=== PATIENT | female | born 1965 | race African-American/Black ===

== ENCOUNTER 2020-11-28 11:27 | Inpatient (IN) | payer MEDICARE, MEDICAID ==
[~2020-11-28] VITALS: Ht 165.1 cm; Wt 74.8 kg
[2020-11-28] MEDS ORDERED: SODIUM CHLORIDE 0.9% 1,000 ML IV ONE (12:30)
[2020-11-28] MEDS ORDERED: MORPHINE SULFATE 4 MG/ML CPJ (NOT FOR IM USE) IV ONE (12:30)
[2020-11-28 12:53] LABS: MEAN CORPUSCULAR HEMOGLOBIN 38.4 pg (28.0-32.0); MEAN CORPUSCULAR VOLUME 113.7 fL (81.0-99.0); MEAN PLATELET VOLUME 8.4 fl (7.4-10.4); PLATELET 207 x1000/uL (130-400); RED BLOOD CELL COUNT 1.66 mill/uL (4.2-5.4); RED CELL DISTRIBUTION WIDTH 24.1 % (11.6-14.6)
[2020-11-28 13:00] LABS: CHLORIDE 113 mEq/L (98-107)
[2020-11-28 13:03] LABS: INR 1.1; PROTHROMBIN TIME 11.4 sec (9.6-11.0)
[2020-11-28 13:05] LABS: HEMATOCRIT. 18.9 % (36.0-48.0); HEMOGLOBIN. 6.4 g/dL (12.0-16.0)
[2020-11-28 13:26] LABS: NUCLEATED RED BLOOD CELLS 161 /100 WBC
[2020-11-28 13:31] LABS: PLATELET ESTIMATE NORMAL
[2020-11-28 17:03] LABS: BG BASE EXCESS -4.1 mmol/L (-2.0-2.0); BG CARBOXYHEMOGLOBIN 1.1 % (0.5-1.5); BG DEOXYHEMOGLOBIN 3.2 % (0.0-5.0); BG HCO3 ACT 19.8 mmol/L (22.0-26.0); BG METHEMOGLOBIN 0.4 % (0.0-1.5); BG OXYGEN SATURATION 96.8 % (92.0-98.5); BG OXYHEMOGLOBIN 95.3 % (94.0-97.0); BG PCO2 30.1 mmHg (35.0-45.0); BG PH 7.435 (7.350-7.450); BG PO2 96.8 mmHg (75.0-100.0); BG SAMPLE SITE RIGHT RADIAL; BG TOTAL HEMOGLOBIN 6.4 g/dL (12.0-18.0); BG VENT MODE NASAL CANNULA
[2020-11-28] MEDS ORDERED: CEFTRIAXONE 1 G PREMIX 50 ML IV SCH (17:30)
[2020-11-28] MEDS: FOLIC ACID 1MG TABLET PO SCH (17:53)
[2020-11-28 21:21] LABS: CLARITY URINE CLEAR (CLEAR); COLOR URINE YELLOW (YELLOW); KETONES URINE NEGATIVE (NEGATIVE); LEUKOCYTE ESTERASE URINE NEGATIVE (NEGATIVE); NITRITE URINE NEGATIVE (NEGATIVE); OCCULT BLOOD URINE 2+ (NEGATIVE); PROTEIN URINE 3+ (NEGATIVE); SPECIFIC GRAVITY URINE 1.013 (1.005-1.030); UROBILINOGEN URINE 0.2 E.U./dL (0.2-1.0)
[2020-11-28 23:53] VITALS: BP 188/71
[2020-11-29] VITALS: BP 164/75
[2020-11-29] MEDS ORDERED: CLONIDINE 0.1MG TABLET PO PRN (00:15)
[2020-11-29 00:54] LABS: HEMATOCRIT. 24.3 % (36.0-48.0); HEMOGLOBIN. 8.5 g/dL (12.0-16.0); MEAN CORPUSCULAR HEMOGLOBIN 36.2 pg (28.0-32.0); MEAN CORPUSCULAR VOLUME 103.7 fL (81.0-99.0); MEAN PLATELET VOLUME 8.6 fl (7.4-10.4); PLATELET 205 x1000/uL (130-400); RED BLOOD CELL COUNT 2.34 mill/uL (4.2-5.4); RED CELL DISTRIBUTION WIDTH 23.9 % (11.6-14.6)
[2020-11-29] MEDS: MORPHINE SULFATE 2 MG/ML CPJ (NOT FOR IM USE) IV PRN ×3 (01:07→12:01)
[2020-11-29] MEDS: SODIUM CHLORIDE 0.45% 1,000 ML IV SCH ×3 (01:08→20:21)
[2020-11-29 01:17] LABS: PLATELET ESTIMATE NORMAL
[2020-11-29 01:20] LABS: NUCLEATED RED BLOOD CELLS 102 /100 WBC
[2020-11-29 04:00] VITALS: BP 168/88
[2020-11-29] MEDS ORDERED: VOXE500T PO (04:11)
[2020-11-29] MEDS ORDERED: ACET650T10 PO (04:11)
[2020-11-29] MEDS ORDERED: BREX2TAB PO (04:11)
[2020-11-29] MEDS ORDERED: TIZA-191 PO (04:11)
[2020-11-29] MEDS ORDERED: ATOR40TA70 PO (04:11)
[2020-11-29] MEDS ORDERED: ERGO500013 PO (04:11)
[2020-11-29] MEDS ORDERED: AMLO5TAB88 PO (04:11)
[2020-11-29] MEDS ORDERED: FLOV11 IH (04:11)
[2020-11-29] MEDS ORDERED: TRAM50TA3 PO (04:11)
[2020-11-29] MEDS ORDERED: GABA-532 PO (04:11)
[2020-11-29] MEDS: PANTOPRAZOLE 40MG DR TABLET PO SCH (06:24)
[2020-11-29] MEDS: FOLIC ACID 1MG TABLET PO SCH (10:29)
[2020-11-29 11:56] VITALS: BP 145/58
[2020-11-29 12:33] LABS: BASOPHILS % 0.5 % (0.0-2.0); EOSINOPHILS % 0.5 % (0.0-5.0); HEMATOCRIT. 25.7 % (36.0-48.0); HEMOGLOBIN. 8.8 g/dL (12.0-16.0); LYMPHOCYTES % 10.8 % (20.0-50.0); MEAN CORPUSCULAR HEMOGLOBIN 35.9 pg (28.0-32.0); MEAN CORPUSCULAR VOLUME 105.6 fL (81.0-99.0); MEAN PLATELET VOLUME 8.5 fl (7.4-10.4); MONOCYTES % 4.3 % (2.0-8.0); NEUTROPHILS % 83.9 % (40.0-76.0); PLATELET 211 x1000/uL (130-400); RED BLOOD CELL COUNT 2.44 mill/uL (4.2-5.4); RED CELL DISTRIBUTION WIDTH 24.4 % (11.6-14.6)
[2020-11-29 12:40] LABS: CHLORIDE 113 mEq/L (98-107)
[2020-11-29 12:56] LABS: PLATELET ESTIMATE NORMAL
[2020-11-29] MEDS ORDERED: CYAN100T43 MT (14:23)
[2020-11-29] MEDS ORDERED: ASCO-339 MT (14:23)
[2020-11-29] MEDS ORDERED: METO100T16 MT (14:23)
[2020-11-29] MEDS ORDERED: ASPI-1406 MT (14:23)
[2020-11-29] MEDS ORDERED: DIPH25CA83 PO (14:23)
[2020-11-29] MEDS ORDERED: HYDR500C18 MT (14:23)
[2020-11-29] MEDS ORDERED: BREXPIPRAZOLE PO SCH (15:00)
[2020-11-29 16:00] VITALS: BP 163/71
[2020-11-29] MEDS: ATORVASTATIN CALCIUM 40MG TABLET PO SCH (18:16)
[2020-11-29] MEDS: HYDROXYUREA 500MG CAPSULE PO SCH (18:16)
[2020-11-29] MEDS: GABAPENTIN 300MG CAPSULE PO SCH (18:16)
[2020-11-29] MEDS: CEFTRIAXONE 1,000 MG in DEXTROSE 5% WATER 50 ML IV SCH (18:16)
[2020-11-29] MEDS: AMLODIPINE 5MG TABLET PO SCH (18:17)
[2020-11-29 20:00] VITALS: BP 163/73
[2020-11-29] MEDS: TIZANIDINE HCL 2MG TABLET PO SCH (20:21)
[2020-11-29] MEDS: HYDROCODONE/ACETAMINOPHEN 5/325MG TABLET PO PRN (20:22)
[2020-11-29 21:22] VITALS: BP 118/62
[2020-11-30] VITALS (8 sets, daily range): BP systolic 137–159; BP diastolic 74–85
[2020-11-30] MEDS: HYDROCODONE/ACETAMINOPHEN 5/325MG TABLET PO PRN ×3 (03:44→20:51)
[2020-11-30] MEDS: SODIUM CHLORIDE 0.45% 1,000 ML IV SCH ×2 (06:09→11:18)
[2020-11-30] MEDS: PANTOPRAZOLE 40MG DR TABLET PO SCH (06:09)
[2020-11-30 06:51] LABS: CHLORIDE 110 mEq/L (98-107)
[2020-11-30 07:01] LABS: BASOPHILS % 0.6 % (0.0-2.0); EOSINOPHILS % 2.5 % (0.0-5.0); HEMATOCRIT. 24.5 % (36.0-48.0); HEMOGLOBIN. 8.4 g/dL (12.0-16.0); LYMPHOCYTES % 11.4 % (20.0-50.0); MEAN CORPUSCULAR HEMOGLOBIN 36.5 pg (28.0-32.0); MEAN CORPUSCULAR VOLUME 106.7 fL (81.0-99.0); MEAN PLATELET VOLUME 9.5 fl (7.4-10.4); MONOCYTES % 5.2 % (2.0-8.0); NEUTROPHILS % 80.3 % (40.0-76.0); PLATELET 192 x1000/uL (130-400); RED BLOOD CELL COUNT 2.29 mill/uL (4.2-5.4); RED CELL DISTRIBUTION WIDTH 23.5 % (11.6-14.6)
[2020-11-30] MEDS: FOLIC ACID 1MG TABLET PO SCH (08:31)
[2020-11-30] MEDS: ATORVASTATIN CALCIUM 40MG TABLET PO SCH (08:31)
[2020-11-30] MEDS: AMLODIPINE 5MG TABLET PO SCH (08:31)
[2020-11-30] MEDS: GABAPENTIN 300MG CAPSULE PO SCH ×3 (08:31→19:08)
[2020-11-30] MEDS ORDERED: CYANOCOBALAMIN 100MCG TABLET PO SCH (09:00)
[2020-11-30] MEDS ORDERED: ASPIRIN 81MG EC TABLET PO SCH (09:00)
[2020-11-30] MEDS ORDERED: ASCORBIC ACID 500 MG TABLET PO SCH (09:00)
[2020-11-30] MEDS ORDERED: IOHEXOL-350 100 ML BOTTLE ONE (09:44)
[2020-11-30] MEDS: HYDROXYUREA 500MG CAPSULE PO SCH ×2 (11:18→14:10)
[2020-11-30] MEDS: MORPHINE SULFATE 2 MG/ML CPJ (NOT FOR IM USE) IV PRN ×2 (11:20→19:10)
[2020-11-30] MEDS: CEFTRIAXONE 1,000 MG in DEXTROSE 5% WATER 50 ML IV SCH (19:08)
[2020-11-30] MEDS: TIZANIDINE HCL 2MG TABLET PO SCH (20:52)
[2020-12-01] MEDS ORDERED: FAMOTIDINE 20MG TABLET PO SCH (09:00)
== END 2020-11-30 22:44 | DRG 811 ==
LOC: ER 11:47 → EDBEDREQTM 16:26 → EDBEDREQ 16:26 → SUPCPDRO 16:33 → ENRESERV 20:50 → 8WST 23:32
PROVIDERS: ADMIT Internal Medicine; ATTEND Internal Medicine
PROC: 30233N1 Transfusion of Nonautologous Red Blood Cells into Peripheral Vein, Percutaneous Approach (ICD-10-PCS; principal; 2020-11-28)
DX: D57.00 Hb-SS disease with crisis, unspecified (principal); G93.41 Metabolic encephalopathy; N39.0 Urinary tract infection, site not specified; I67.5 Moyamoya disease; D68.59 Other primary thrombophilia; R65.10 Systemic inflammatory response syndrome (SIRS) of non-infectious origin without acute organ dysfunction; D75.89 Other specified diseases of blood and blood-forming organs; E86.0 Dehydration; F20.9 Schizophrenia, unspecified; H54.8 Legal blindness, as defined in USA; I72.5 Aneurysm of other precerebral arteries; I65.23 Occlusion and stenosis of bilateral carotid arteries; R00.0 Tachycardia, unspecified; Z20.822 Contact with and (suspected) exposure to COVID-19; Z86.73 Personal history of transient ischemic attack (TIA), and cerebral infarction without residual deficits
CPT/HCPCS: 36415; 36600; 70496; 70498; 70551; 71045; 80048; 80053; 81003; 82375; 82805; 85025; 85044; 85660; 86850; 86900; 86920; 87426; 93005; 97162; 99291; J0696; J2270; J7030; J7040; J7060; P9016; Q9967